=== PATIENT | female | born 1965 | race Caucasian/White ===

== ENCOUNTER 2016-11-25 13:10 | Emergency (ER) | payer BC ==
[2016-11-25 14:31] VITALS: BP 118/72
--- NOTE | 2016-11-25 15:14 | UC ---
Throat Pain/Nasal Spike HPI - HPI Summary HPI Summary: sinus pain and pressure x 4 weeks, nasal congestion , no fever, no chills - History of Current Complaint Chief Complaint: UCGeneralIllness Stated Complaint: SINUS COMPLAINT Time Seen by Provider: 11/25/16 14:27 Hx Obtained From: Patient Hx Last Menstrual Period: has an IUD Onset/Duration: Gradual Onset, Lasting Weeks - 4, Still Present Severity: Moderate Cough: None Associated Signs & Symptoms: Positive: Sinus Discomfort, Nasal Discharge - Allergies/Home Medications Allergies/Adverse Reactions: Allergies Allergy/AdvReac Type Severity Reaction Status Date / Time No Known Allergies Allergy Verified 11/25/16 14:25 PMH/Surg Hx/FS Hx/Imm Hx Cardiovascular History Of: Reports: Hypertension - ON DAILY MEDS, STATES CONTROLLED Respiratory History Of: Reports: Bronchitis - USUALLY YEARLY, HAD IN WINTER OF - Surgical History Surgical History: Yes Surgery Procedure, Year, and Place: [place] [facility] [place]. 2010 [place]ST [place] [facility] [place] - Family History Known Family History: Negative: Diabetes - Social History Alcohol Use: None Alcohol Amount: 2-3 DRINKS/YEAR Substance Use Type: None Smoking Status (MU): Never Smoked Tobacco Have You Smoked in the Last Year: No Review of Systems Constitutional: Negative Skin: Negative Eyes: Negative ENT: Sore Throat, Ear Ache, Nasal Discharge Respiratory: Negative Cardiovascular: Negative Gastrointestinal: Negative Genitourinary: Negative All Other Systems Reviewed And Are Negative: Yes Physical Exam Triage Information Reviewed: Yes Appearance: Well-Appearing, No Pain Distress, Well-Nourished Vital Signs: Initial Vital Signs Temp 98.4 F 11/25/16 14:26 Pulse 78 11/25/16 14:26 Resp 16 11/25/16 14:26 BP 118/72 11/25/16 14:26 Pulse Ox 98 11/25/16 14:26 Vital Signs Reviewed: Yes Eye Exam: Normal Eyes: Positive: Conjunctiva Clear ENT: Positive: Normal ENT inspection, Hearing grossly normal, Pharyngeal erythema, Nasal congestion, Nasal drainage, TMs normal Neck: Positive: Supple, Nontender, No Lymphadenopathy Respiratory: Positive: Chest non-tender, Lungs clear, Normal breath sounds Cardiovascular: Positive: RRR, No Murmur, Pulses Normal Throat Pain/Nasal Course/Dx - Differential Dx/Diagnosis Provider Diagnoses: sinusitis Discharge - Discharge Plan Condition: Stable Disposition: HOME Prescriptions: Amoxicillin/Clavulanate TAB* [Augmentin TAB 875*] 875 mg PO BID #20 tab Patient Education Materials: Sinusitis (ED) Referrals: Ankush Golden MD [Primary Care Provider] - If Needed
== END 2016-11-25 15:19 | disposition home or self-care (01) ==
LOC: UCCORT 13:10
DX: J32.9 Chronic sinusitis, unspecified (principal); I10 Essential (primary) hypertension
CPT/HCPCS: 99212; G0463

== ENCOUNTER 2017-01-06 10:28 | Emergency (ER) | payer BC ==
--- NOTE | 2017-01-06 12:29 | UC ---
UC General HPI - HPI Summary HPI Summary: Patient has had fever, cough, body aches for 4 days, has the flu, cough is sever and painful - History of Current Complaint Chief Complaint: UCGeneralIllness Stated Complaint: UPPER RESPIRATORY Time Seen by Provider: 01/06/17 12:19 Hx Obtained From: Patient Onset/Duration: Sudden Onset, Lasting Days Timing: Constant Onset Severity: Moderate Current Severity: Severe Pain Intensity: 8 Associated Signs & Symptoms: Positive: Fever, Headache, Wheezing - Allergy/Home Medications Allergies/Adverse Reactions: Allergies Allergy/AdvReac Type Severity Reaction Status Date / Time No Known Allergies Allergy Verified 01/06/17 12:04 Home Medications: Home Medications Fluticasone NASAL SPRAY 50MCG* [Flonase NASAL SPRAY 50MCG*] 2 spray BOTH NARES DAILY 01/06/17 [History Confirmed 01/06/17] Ibuprofen TAB* [Advil TAB*] 400 mg PO Q6H PRN 01/06/17 [History Confirmed ] PMH/Surg Hx/FS Hx/Imm Hx Previously Healthy: Yes Cardiovascular History Of: Reports: Hypertension Respiratory History Of: Reports: Bronchitis - USUALLY YEARLY, HAD IN WINTER OF - Surgical History Surgical History: Yes Surgery Procedure, Year, and Place: [address] [facility] [place]. RT KNEE SCOPE. 2010 RIGHT WRIST TENDON REPAIR [facility] [place]. 2015 - colonoscopy - Family History Known Family History: Positive: Hypertension Negative: Diabetes - Social History Alcohol Use: Rare Alcohol Amount: 2-3 DRINKS/YEAR Substance Use Type: None Smoking Status (MU): Never Smoked Tobacco Have You Smoked in the Last Year: No - Immunization History Most Recent Influenza Vaccination: [id number] season Review of Systems Constitutional: Fever, Chills, Fatigue Skin: Negative Eyes: Negative ENT: Sore Throat, Ear Ache Respiratory: Shortness Of Breath, Cough Cardiovascular: Negative Gastrointestinal: Negative Genitourinary: Negative Motor: Negative Neurovascular: Negative Musculoskeletal: Myalgia Neurological: Headache Psychological: Negative All Other Systems Reviewed And Are Negative: Yes Physical Exam Triage Information Reviewed: Yes Appearance: Well-Nourished, Ill-Appearing, Pain Distress Vital Signs: Initial Vital Signs Temp 100.6 F 01/06/17 12:06 Pulse 83 01/06/17 12:06 Resp 16 01/06/17 12:06 BP 126/74 01/06/17 12:06 Pulse Ox 98 02/25/17 12:06 Vital Signs Reviewed: Yes Eye Exam: Normal Eyes: Positive: Conjunctiva Clear ENT Exam: Normal ENT: Positive: Normal ENT inspection, Hearing grossly normal, Pharynx normal, TMs normal Dental Exam: Normal Neck exam: Normal Neck: Positive: Supple, Nontender, No Lymphadenopathy Respiratory: Positive: Chest non-tender, No respiratory distress, No accessory muscle use, Wheezing, Inspiration Cardiovascular Exam: Normal Cardiovascular: Positive: RRR, No Murmur, Pulses Normal Abdominal Exam: Normal Abdomen Description: Positive: Nontender, No Organomegaly, Soft Bowel Sounds: Positive: Present Musculoskeletal Exam: Normal Musculoskeletal: Positive: Strength Intact, ROM Intact, No Edema Neurological Exam: Normal Neurological: Positive: Alert, Muscle Tone Normal Psychological Exam: Normal Skin: Positive: Other - flushed face Course/Dx - Course Course Of Treatment: hx obtained, exam performed, rapid flu obtained and is negative. prednisone prescribed bro bronchospasm, albuterol given as well. - Differential Dx - Multi-Symptom Provider Diagnoses: wheezing. SOB Discharge - Discharge Plan Condition: Stable Disposition: HOME Prescriptions: predniSONE TAB* [Deltasone TAB*] 40 mg PO DAILY #10 tab Patient Education Materials: Acute Bronchitis (ED) Additional Instructions: Take the medications as prescribed. Increase fluid intake and get plenty of rest. Cool mist humidification for cough at night. Tylenol or Ibuprofen for pain and fever.
[2017-01-06 12:52] VITALS: BP 131/66
== END 2017-01-06 12:52 | disposition home or self-care (01) ==
LOC: UCCORT 10:28
DX: R06.2 Wheezing (principal); R06.02 Shortness of breath
CPT/HCPCS: 87502; 99212; G0463

== ENCOUNTER 2017-01-13 07:07 | Emergency (ER) | payer BC ==
--- NOTE | 2017-01-13 07:34 | UC ---
Respiratory Complaint HPI - History of Current Complaint Chief Complaint: UCRespiratory Stated Complaint: COUGH, SINUS Time Seen by Provider: 01/13/17 07:25 Hx Obtained From: Patient Hx Last Menstrual Period: pt has an IUD and states not getting a menses ?: No Onset/Duration: Gradual Onset Timing: Constant Character: Cough: Productive Associated Signs And Symptoms: Positive: Negative - Risk Factors Pulmonary Embolism Risk Factors: Negative Cardiac Risk Factors: Negative Pseudomonas Risk Factors: Negative Tuberculosis Risk Factors: Negative - Allergies/Home Medications Allergies/Adverse Reactions: Allergies Allergy/AdvReac Type Severity Reaction Status Date / Time No Known Allergies Allergy Verified 01/06/17 12:04 PMH/Surg Hx/FS Hx/Imm Hx Cardiovascular History Of: Reports: Hypertension Respiratory History Of: Reports: Bronchitis - USUALLY YEARLY, HAD IN WINTER OF - Surgical History Surgical History: Yes Surgery Procedure, Year, and Place: 1987 TONSILLECTOMY [facility] – [place]. RT KNEE SCOPE. 2010 RIGHT WRIST TENDON REPAIR [facility] [place]. 2015 - colonoscopy - Family History Known Family History: Positive: Hypertension Negative: Diabetes - Social History Alcohol Use: Rare Alcohol Amount: 2-3 DRINKS/YEAR Substance Use Type: None Smoking Status (MU): Never Smoked Tobacco Have You Smoked in the Last Year: No - Immunization History Most Recent Influenza Vaccination: [id number] season Review of Systems Constitutional: Fatigue Skin: Negative Eyes: Negative ENT: Negative Respiratory: Cough Cardiovascular: Negative Gastrointestinal: Negative Genitourinary: Negative Motor: Negative Neurovascular: Negative Musculoskeletal: Negative Neurological: Negative Psychological: Negative All Other Systems Reviewed And Are Negative: Yes Physical Exam Triage Information Reviewed: Yes Appearance: Well-Appearing, No Pain Distress, Well-Nourished Vital Signs: Initial Vital Signs Temp 98 F 01/13/17 07:13 Pulse 88 01/13/17 07:13 Resp 16 01/13/17 07:13 BP 149/81 01/13/17 07:13 Pulse Ox 99 01/13/17 07:13 Vital Signs Reviewed: Yes Eye Exam: Normal ENT Exam: Normal ENT: Positive: Pharynx normal, Nasal congestion, Nasal drainage, TMs normal, Other: - bilateral maxillary sinus pressure Dental Exam: Normal Neck exam: Normal Neck: Positive: 1 Respiratory Exam: Normal Cardiovascular Exam: Normal Musculoskeletal Exam: Normal Neurological Exam: Normal Psychological Exam: Normal Skin Exam: Normal UC Diagnostic Evaluation - Laboratory O2 Sat by Pulse Oximetry: 99 Respiratory Course/Dx - Course Course Of Treatment: Had minor improvement from prednisone but symptoms continued and not improved with productive cough at this time. Failed conservative treatment . SHe is aware of SE of augmentin at this time and desires to start meds as she has been ill and worsening with sinusitis sx with tooth tenderness for 3 days - Differential Dx/Diagnosis Differential Diagnosis/HQI/PQRI: Bronchitis, Sinusitis Provider Diagnoses: sinusitis / bronchitis Discharge - Discharge Plan Condition: Good Disposition: HOME Prescriptions: Amoxicillin/Clavulanate TAB* [Augmentin TAB 875*] 875 mg PO BID #20 tab Patient Education Materials: Acute Bronchitis (ED) Referrals: Sahara Brizuela MD [Primary Care Provider] - 3 Days
[2017-01-13 07:49] VITALS: BP 141/75
== END 2017-01-13 07:47 | disposition home or self-care (01) ==
LOC: UCCORT 07:07
DX: J32.9 Chronic sinusitis, unspecified (principal); J40 Bronchitis, not specified as acute or chronic
CPT/HCPCS: 99212; G0463

== ENCOUNTER 2018-11-28 13:26 | Emergency (ER) | payer BC ==
[2018-11-28 14:33] VITALS: BP 141/85
--- NOTE | 2018-11-28 14:41 | UC ---
Abdominal Pain Female HPI - HPI Summary HPI Summary: Patient presents with 2 weeks of intermittent bladder spasm, urinary urgency, and radiation to her right flank. Patient states pain intensifies she feels nauseous and unable to get comfortable. Patient is fevers or chills. Patient denies hematuria. Patient denies any vaginal discharge, itching, odor. Patient states she is not . Patient states she does have a remote history of renal stones but states she did not have symptoms when she had it. Patient has not taken anything for pain because she "didn't think about it." Patient has abdominal pain. No diarrhea. Patient is status post sigmoid colon resection for diverticulitis. Patient states she still has some loose stools but states this does not feel anything like that. Pt's medications reviewed this visit - History of Current Complaint Chief Complaint: UCGU Stated Complaint: URINARY Time Seen by Provider: 11/28/18 14:36 Hx Obtained From: Patient Hx Last Menstrual Period: 10/28/18 ?: No Onset/Duration: Gradual Onset, Lasting Weeks Timing: Intermittent Episodes Lasting: Severity Initially: Mild Severity Currently: Moderate Pain Intensity: 5 Allergies/Adverse Reactions: Allergies Allergy/AdvReac Type Severity Reaction Status Date / Time No Known Allergies Allergy Verified 11/28/18 14:23 Home Medications: Home Medications Beclomethasone Dipropionate [Qnasl] 80 mcg NA 11/28/18 [History] Fluticasone/Vilanterol [Breo Ellipta 200-25 Mcg INH] 1 each IH 11/28/18 [History ] Levocetirizine Dihydrochloride [Xyzal Allergy 24Hr] 5 mg PO DAILY 11/28/18 [ History Confirmed 11/28/18] PMH/Surg Hx/FS Hx/Imm Hx Previously Healthy: Yes GI/ History: Kidney Stones, Diverticulitis - Surgical History Surgical History: Yes Surgery Procedure, Year, and Place: [place] [facility] [place]. 2010 RIGHT WRIST [place] [facility] [place] - colonoscopy. sigmoid colon resection for diverticulitis - Family History Known Family History: Positive: Hypertension Negative: Diabetes - Social History Lives: With Family Alcohol Use: Rare Alcohol Amount: 2-3 DRINKS/YEAR Substance Use Type: None Smoking Status (MU): Never Smoked Tobacco Have You Smoked in the Last Year: No - Immunization History Most Recent Influenza Vaccination: [id number] season Review of Systems All Other Systems Reviewed And Are Negative: Yes Constitutional: Positive: Negative Skin: Positive: Negative Eyes: Positive: Negative Gastrointestinal: Positive: Nausea, Other - right flank pain Genitourinary: Positive: Frequency, Urgency. Negative: Vaginal/Penile Discharge , Vaginal/Penile Pain, Vaginal/Penile Tenderness Physical Exam - Summary Physical Exam Summary: Vital Signs Reviewed: Yes A+Ox3, no distress Eyes: Conjunctiva Clear, TONY. EOM intact and full ENT: Hearing grossly normal TM x 2 clear, mmoist, uvula midline, no exudate, no erythema Neck: Positive: Supple Respiratory: Positive: No respiratory distress, No accessory muscle use + CTA throughout no w/r Cardiovascular: RRR nl s1, s2 no m/r CBT <2 sec abd soft + BS nt/nd no guarding, no distension , mild right CVA Musculoskeletal Exam: No pain c/t/l/s No pain paraspinal muscles with palpation DACOSTA x 4 without difficulty Strength Intact, ROM Intact Neurological: Positive: Alert, + sensation throughout Psychological: Positive: Normal Response To Family Skin: Positive: no rash, no ecchymosis Triage Information Reviewed: Yes Vital Signs: Initial Vital Signs Temp 98.1 F 11/28/18 14:26 Pulse 73 11/28/18 14:26 Resp 18 11/28/18 14:26 BP 141/85 11/28/18 14:26 Pulse Ox 97 11/28/18 14:26 Re-Evaluation - Re-Evaluation First Eval Change: Unchanged - reviewed imaging with pt Pain well controlled - no infection d/w Dr. Gamino - will see pt at 8am tomorrow clear liquids only after midnight check CBC/bmp urine culture flomax hydrate before midnight Pt comfortable and in agreement with plan Abd Pain Female Course/Dx - Course Course Of Treatment: Pt presents to UC with 2 weeks of intermittent urinary urgency, frequency and right flank pain. Pt with h/o renal stones but were asymptomatic. Pt denies vaginal discharge, itching, odor No analgesia taken. VSS. Pt well appearing. Pt with 1+ blood in urine. Will check CT for renal stone. Pt declined analgesia a UC. Pt with slight elevated BP - recommend f/u with PCP - Differential Dx/Diagnosis Provider Diagnosis: Renal calculus, right, Hydronephrosis due to obstruction of ureter Discharge - Sign-Out/Discharge Documenting (check all that apply): Patient Departure All imaging exams completed and their final reports reviewed: Yes - Discharge Plan Condition: Stable Disposition: HOME Prescriptions: Tamsulosin HCl [Flomax] 0.4 mg PO BEDTIME #5 cap Patient Education Materials: Kidney Stones (ED), Hydronephrosis (ED) Referrals: Carmen Hawley NP [Primary Care Provider] - Grupo Gamino MD [Medical Doctor] - (8am tomorrow morning, 11/29/2018) Additional Instructions: - Stay well hydrated. Drink plenty of non-alcoholic, non-caffinated beverages - Okay to alternate ibuprofen (Advil, Motrin) 600mg and tylenol 1000mg every 3 hours for pain. - Take flomax at bedtime nightly - stop if you pass the stone - strain your urine - if you collect your stone - - Do NOT eat any solid foods after midnight. Okay to have clear liquids - Go DIRECTLY to Dr. Gamino's office at 8am tomorrow - he is expecting you. It is VERY possible you will have a procedure to remove this stone tomorrow after you appointment with Dr. Gamino -If you have uncontrolled pain - go directly to the emergency department in [place] - Billing Disposition and Condition Condition: STABLE Disposition: Home
[2018-11-28 18:36] LABS: ABS Basophils 0.1 10^3/ul (0-0.2); ABS Eosinophils 0.1 10^3/ul (0-0.6); ABS Monocytes 0.5 10^3/ul (0-0.8); ABS Neutrophils 6.7 10^3/ul (1.5-7.7); ABS Nucleated RBC 0.1 10^3/ul; Eosinophil % 1.2 %; Hematocrit 42 % (35-47); Hemoglobin 14.2 g/dl (12.0-16.0); Lymphocyte % 21.2 %; Mean Corpuscular HGB Conc 34 g/dl (31-36); Mean Corpuscular Hemoglobin 32 pg (27-31); Mean Corpuscular Volume 96 fL (80-97); Mean Platelet Volume 9.1 fL (7.4-10.4); Nucleated Red Blood Cells % 0.5; Platelet Count 215 10^3/ul (150-450); Red Blood Count 4.39 10^6/ul (4.00-5.40); Red Cell Distribution Width 12 % (10.5-15); White Blood Count 9.5 10^3/ul (3.5-10.8)
[2018-11-28 18:56] LABS: BUN/Creatinine Ratio 19.8 (8-20); Calcium 9.5 mg/dL (8.6-10.3); EGFR Non-African American 51.6 (>60); Potassium 4.1 mmol/L (3.5-5.0)
--- NOTE | 2018-11-29 07:08 | UC ---
- Progress Note Progress Note: CBC with diff CMP 11/29/18 Re-Evaluation - Re-Evaluation First Eval Change: Unchanged - reviewed imaging with pt Pain well controlled - no infection d/w Dr. Gamino - will see pt at 8am tomorrow clear liquids only after midnight check CBC/bmp urine culture flomax hydrate before midnight Pt comfortable and in agreement with plan Course/Dx - Diagnoses Provider Diagnoses: Renal calculus, right, Hydronephrosis due to obstruction of ureter Discharge - Sign-Out/Discharge Documenting (check all that apply): Post-Discharge Follow Up All imaging exams completed and their final reports reviewed: Yes - Discharge Plan Condition: Stable Disposition: HOME Prescriptions: Tamsulosin HCl [Flomax] 0.4 mg PO BEDTIME #5 cap Patient Education Materials: Kidney Stones (ED), Hydronephrosis (ED) Referrals: Carmen Hawley NP [Primary Care Provider] - Grupo Gamino MD [Medical Doctor] - (8am tomorrow morning, 11/29/2018) Additional Instructions: - Stay well hydrated. Drink plenty of non-alcoholic, non-caffinated beverages - Okay to alternate ibuprofen (Advil, Motrin) 600mg and tylenol 1000mg every 3 hours for pain. - Take flomax at bedtime nightly - stop if you pass the stone - strain your urine - if you collect your stone - - Do NOT eat any solid foods after midnight. Okay to have clear liquids - Go DIRECTLY to Dr. Gamino's office at 8am tomorrow - he is expecting you. It is VERY possible you will have a procedure to remove this stone tomorrow after you appointment with Dr. Gamino -If you have uncontrolled pain - go directly to the emergency department in [place] - Billing Disposition and Condition Condition: STABLE Disposition: Home
== END 2018-11-28 16:09 | disposition home or self-care (01) ==
LOC: UCCORT 13:26
DX: N20.0 Calculus of kidney (principal); Z87.442 Personal history of urinary calculi; N13.1 Hydronephrosis with ureteral stricture, not elsewhere classified
CPT/HCPCS: 36415; 74176; 80048; 81003; 85025; 87086; 99212; G0463

== ENCOUNTER 2018-11-29 12:49 | Day surgery (SDC) | payer BC ==
--- NOTE | 2018-11-29 09:32 | HP ---
CC: RADHA Laguerre * DATE OF PLANNED ADMISSION AND SURGERY: 11/29/18 HISTORY OF PRESENT ILLNESS: Mrs. Moreno is a 53-year-old white female who is admitted with a distal right ureteral calculus for cystoscopy, right ureteroscopy, laser lithotripsy, and right ureteral stent insertion. Mrs. Moreno's symptoms started about one month ago when she had an episode of acute right flank pain. The pain lasted for about a day, and slowly improved spontaneously. She did well until about two weeks ago when she started having irritative bladder symptoms with urgency, frequency, and feeling of incomplete bladder emptying. She did not have any fever or chills, and no gross hematuria. Two days ago, she started having severe right flank pain, and she [facility]. She had no fever or chills. Non-contrast CT of the abdomen and pelvis showed mild to moderate right hydrouretero-nephrosis and an 8-mm calculus in the distal right ureter. No other abnormalities were noted. Her urinalysis showed microscopic hematuria was negative otherwise. Her chemistries were fine with a normal serum creatinine. Patient was then referred to my office for evaluation, and endoscopic stone extraction was recommended. PAST HISTORY: Otherwise negative. No past history of any renal diseases or calculi. No history of any voiding symptoms. No history of gross hematuria. PAST MEDICAL HISTORY: 1. Patient had history of diverticulosis and had undergone a sigmoid resection in April 2017. 2. She is hypertensive, maintained on Losartan 100 mg daily, and on Furosemide 40 mg daily. 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 She has not had any gynecological surgeries. ALLERGIES: She denies any allergies to medications. PERSONAL HISTORY: She is a non-smoker. Very minimal alcohol intake. FAMILY HISTORY: Negative for renal diseases. PHYSICAL EXAMINATION GENERAL: Obese white female who looks comfortable, otherwise healthy. VITAL SIGNS: Blood pressure 126/84, pulse 74, temperature 97.1. HEART: Regular and rhythmic, no murmurs. LUNGS: Clear. ABDOMEN: Soft, no masses, no tenderness, and there is mild to moderate right CVA tenderness. EXTREMITIES: Show no edema. IMPRESSION: An 8-mm distal right ureteral calculus with episodes of right renal colic and irritative bladder symptoms. PLAN: Cystoscopy, right ureteroscopy, laser lithotripsy, and right ureteral stent insertion. I discussed the procedure in detail with the patient. Some of the potential complications including urethral stricture and possible need for staging of the procedure were discussed. All her questions were answered. [id number]/[facility] #: [id number] BENNIE
[~2018-11-29 12:49] MED LIST: Buffered Lidocaine 1% SYRIN* 1 ML/SYRINGE INTRADERM ONE; Dexamethasone TAB* 4 MG PO ONE; Famotidine IV* 10 MG/ML 2 ML (20 mg) IV ONE; Lactated Ringers 1000 ML Bag* 1,000 ML IV SCH; Ondansetron TAB* 4 MG PO ONE
[2018-11-29] MEDS ORDERED: Dexamethasone TAB* 4 MG ONE (13:41)
[2018-11-29] MEDS ORDERED: Ondansetron ODT TAB* 4 MG ONE (13:41)
[2018-11-29] MEDS ORDERED: cefTRIAXone(*) 2 GM ADDV.VIAL IVPB ONE ×3 (13:41→14:00)
[2018-11-29] MEDS ORDERED: Famotidine IV* 10 MG/ML 2 ML (20 mg) ONE (13:41)
[2018-11-29] MEDS ORDERED: Naloxone* 0.4 MG/ML 1 ML VIAL IV PRN (13:42)
[2018-11-29] MEDS ORDERED: Morphine VIAL* 4 MG/ML VIAL (1 ml vial) IV PRN (13:42)
[2018-11-29] MEDS ORDERED: DiMENhydriNATE IV* 50 MG/ML VIAL IV PUSH PRN (13:42)
[2018-11-29] MEDS ORDERED: fentaNYL* 50 MCG/ML 2 ML VIAL (100 MCG VIAL) IV PRN (13:42)
[2018-11-29] MEDS ORDERED: Scopolamine 1.5 mg* PATCH TRANSDERM PRN (13:42)
[2018-11-29] MEDS ORDERED: PROCHLORPERAZINE INJ 5 MG/ML 2 ML VIAL IV PRN (13:42)
[2018-11-29] MEDS ORDERED: oxyCODONE/Acetamin 5/325 MG* TAB PO PRN (13:42)
[2018-11-29] MEDS ORDERED: Iohexol 180 (CONTRAST) 10 ML SDV IV ONE (14:49)
[2018-11-29] MEDS ORDERED: PROCHLORPERAZINE INJ 5 MG/ML 2 ML VIAL ONE (14:50)
[2018-11-29] MEDS ORDERED: DiMENhydriNATE IV* 50 MG/ML VIAL ONE (14:50)
[2018-11-29] MEDS ORDERED: Propofol* 10 MG/ML 20 ML BTL ONE (14:50)
[2018-11-29] MEDS ORDERED: Lidocaine 2% PF * 5 ML VIAL ONE (14:50)
[2018-11-29] MEDS ORDERED: fentaNYL* 50 MCG/ML 2 ML VIAL (100 MCG VIAL) ONE ×2 (14:51→15:47)
[2018-11-29] MEDS ORDERED: KETAMINE HCL* 50 MG/ML 10 ML VIAL ONE (14:51)
[2018-11-29] MEDS ORDERED: Midazolam* 1 MG/ML 5 ML VIAL (5 MG) ONE (14:51)
[2018-11-29] MEDS ORDERED: Ketorolac INJ* 30 MG/ML 1 ML VIAL ONE (17:29)
[2018-11-29] MEDS ORDERED: Acetaminophen TAB* 325 MG ONE (17:29)
[2018-11-29 17:50] VITALS: BP 155/86
--- NOTE | 2018-11-29 23:50 | OP ---
CC: RADHA Laguerre OPERATIVE REPORT: DATE OF OPERATION: 11/29/18 DATE OF : 67 SURGEON: Grupo Gamino MD ANESTHESIOLOGIST: Dr. Breezy Ann. ANESTHESIA: General. PRE-OP DIAGNOSES: Distal right ureteral calculus (8 mm), recurrent renal colic due to above. POST-OP DIAGNOSES: Distal right ureteral calculus (8 mm), recurrent renal colic due to above. OPERATIVE PROCEDURE: 1. Cystoscopy. 2. Right ureteroscopy. 3. Laser lithotripsy of distal right ureteral calculus (8 mm). 4. Right retrograde pyelography and placement of right ureteral stent (6-Latvian ). INDICATION FOR PROCEDURE: Mrs. Moreno is a 53-year-old white female who had an episode suggestive of right renal colic 1 month ago. Over the last 2 weeks, she has been having recurrent episodes of right flank pain associated with irritative bladder symptoms with frequency and urgency. CT of the abdomen and pelvis done yesterday showed an 8-mm partially obstructing calculus in the distal right ureter. Because of the above history and findings, the patient is admitted for the above procedure. PATHOLOGY: At cystoscopy, the bladder mucosa looked normal. There was edema and hyperemia of the right trigone surrounding the right ureteral orifice. Upon right ureteroscopy, there was an 8-mm calculus that was impacted in the distal ureter about 1 cm above the level of the orifice. The calculus had the gross appearance of a calcium oxalate stone. There was a moderate degree of right hydronephrosis and hydroureter proximal to the stone. There was hyperemia and edema of the ureteral mucosa adjacent to the stone. DESCRIPTION OF PROCEDURE: After successful general anesthesia, the patient was placed in the lithotomy position and was prepped and draped for cystoscopy. Cystoscopy was performed, the bladder was carefully inspected and the above findings were noted. A flexible-tip guidewire was introduced into the right orifice and positioned in the area of the renal pelvis under fluoroscopy guidance. A size 6.5 semirigid tapered ureteroscope was then introduced inside the bladder. A flexible-tip basket was introduced through the port of the ureteroscope and its flexible tip was introduced inside the right orifice along side the guidewire. That allowed the atraumatic introduction of the ureteroscope inside the right ureter. The calculus was identified. A 550 micron laser fiber was introduced through the other port of the ureteroscope. The stone was then broken into multiple fragments using the laser. The fragments were extracted using the stone basket. The larger fragments were sent for stone analysis. Final ureteroscopy showed no residual stone fragments, no evidence of any ureteral wall injury, only the hyperemia of the mucosa expected from the stone impaction. The ureteroscope was removed and the cystoscope introduced inside the bladder over the guidewire. Retrograde pyelography was performed. A size 6 -Latvian stent was then placed with the proximal end coiling in the renal pelvis and the distal end coiling inside the bladder. There was good drainage of contrast from the kidney and no extravasation. The patient tolerated the procedure well and left the operating room in good condition. The plan is to leave the stent in place for 10 days. It will be removed in the office under local anesthesia. [id number]/[facility] #: [id number] BENNIE
--- NOTE | 2018-11-30 07:29 | UC ---
- Progress Note Progress Note: final urine cx negative. -appears she was seen yesterday and OR w/ Dr Knutson w/ cystoscopy, lithotripsy and stent. -not on abx. Course/Dx - Diagnoses Provider Diagnoses: Kidney stone Discharge - Sign-Out/Discharge Documenting (check all that apply): Post-Discharge Follow Up All imaging exams completed and their final reports reviewed: No Studies - Discharge Plan Disposition: HOME - Billing Disposition and Condition Disposition: Home
[2018-12-02] MEDS ORDERED: Scopolamine PATCH Remove* 1 NOTE MISC PATCH OFF ONE (13:45)
== END 2018-11-29 18:26 | disposition home or self-care (01) ==
LOC: OR 12:49
PROVIDERS: ATTEND Urology
DX: N20.1 Calculus of ureter (principal); I10 Essential (primary) hypertension
CPT/HCPCS: 74420; 81025; 82365; 88300; A9270-GY; C1876; J0696; J0780; J1240; J1885; J2250; J2704; J3010; J8540

== ENCOUNTER 2019-06-13 09:30 | Emergency (ER) | payer BC ==
[2019-06-13 09:59] VITALS: BP 121/86
--- NOTE | 2019-06-13 10:28 | UC ---
General HPI - HPI Summary HPI Summary: sick x 3 days. pt c/o cold sore each side of upper lip, then L sided neck soreness, yesterday sore throat onset plus laryngitis. - History of Current Complaint Chief Complaint: UCRespiratory Stated Complaint: SORE THROAT,SORES IN MOUTH Time Seen by Provider: 06/13/19 10:18 Hx Obtained From: Patient Hx Last Menstrual Period: 10/28/18 Onset/Duration: Gradual Onset Timing: Constant Pain Intensity: 5 Associated Signs & Symptoms: Negative: Fever - Allergy/Home Medications Allergies/Adverse Reactions: Allergies Allergy/AdvReac Type Severity Reaction Status Date / Time No Known Allergies Allergy Verified 06/13/19 09:50 Home Medications: Home Medications Fexofenadine (NF) [Leilani 180 (NF)] 180 mg PO DAILY 06/13/19 [History Confirmed 06/13/19] Fluticasone NASAL SPRAY 50MCG* [Flonase NASAL SPRAY 50MCG*] 2 spray BOTH NARES DAILY 06/13/19 [History Confirmed 06/13/19] Ibuprofen TAB* [Advil TAB*] 600 mg PO Q6H PRN 06/13/19 [History Confirmed ] PMH/Surg Hx/FS Hx/Imm Hx - Additional Past Medical History Additional PMH: allergies - Surgical History Surgical History: Yes Surgery Procedure, Year, and Place: [place] [facility] [place]. 2010 [place]ST [place] [facility] [place]oscopy. sigmoid colon resection for diverticulitis. kidney stone - Family History Known Family History: Positive: Hypertension Negative: Diabetes - Social History Alcohol Use: Rare Alcohol Amount: 2-3 DRINKS/YEAR Substance Use Type: None Smoking Status (MU): Never Smoked Tobacco Have You Smoked in the Last Year: No - Immunization History Most Recent Influenza Vaccination: [id number] season Review of Systems All Other Systems Reviewed And Are Negative: Yes Constitutional: Negative: Fever, Chills Respiratory: Negative: Shortness Of Breath, Cough Physical Exam Triage Information Reviewed: Yes Appearance: Well-Appearing Vital Signs: Initial Vital Signs Temp 99.3 F 06/13/19 09:53 Pulse 77 06/13/19 09:53 Resp 16 06/13/19 09:53 BP 121/86 06/13/19 09:53 Pulse Ox 97 06/13/19 09:53 Vital Signs Reviewed: Yes Eyes: Positive: Conjunctiva Clear ENT: Positive: Pharyngeal erythema, TMs normal, Hoarse voice, Uvula midline. Negative: Nasal congestion, Nasal drainage, Trismus, Muffled voice Neck: Positive: Supple, Nontender, No Lymphadenopathy Respiratory: Positive: Lungs clear, Normal breath sounds Cardiovascular: Positive: RRR, No Murmur Musculoskeletal: Positive: ROM Intact Neurological: Positive: Alert Psychological: Positive: Age Appropriate Behavior Skin Exam: Normal Skin: Negative: Rashes Diagnostics - Laboratory Lab Results: rapid strep=neg Course/Dx - Diagnoses Provider Diagnosis: Cold sore, Pharyngitis, Laryngitis Discharge - Sign-Out/Discharge Documenting (check all that apply): Patient Departure All imaging exams completed and their final reports reviewed: No Studies - Discharge Plan Condition: Stable Disposition: HOME Patient Education Materials: Viral Syndrome (ED) Referrals: Carmen Hawley NP [Primary Care Provider] - Additional Instructions: FOLLOW UP IF NOT BETTER IN 5 DAYS OR SOONER IF WORSE. - Billing Disposition and Condition Condition: STABLE Disposition: Home
== END 2019-06-13 10:56 | disposition home or self-care (01) ==
LOC: UCCORT 09:30
DX: B00.1 Herpesviral vesicular dermatitis (principal); J02.9 Acute pharyngitis, unspecified; J04.0 Acute laryngitis
CPT/HCPCS: 87651; 99211; G0463